=== PATIENT | male | born 1975 | race Hispanic/Latino ===

== ENCOUNTER → 2022-03-29 | Outpatient (CLI) | payer MEDICARE | END | disposition home or self-care (01) | LOC: RAH 13:46 | PROVIDERS: ATTEND Internal Medicine Cardiovascular Disease | DX: I31.3 Pericardial effusion (noninflammatory) (principal); R91.8 Other nonspecific abnormal finding of lung field | CPT/HCPCS: 71250 ==

== ENCOUNTER 2024-08-07 11:38 | Observation (INO) | payer MEDICARE ==
[2024-08-07] VITALS (19 sets, daily range): BP systolic 94–143; BP diastolic 56–91; PULSE 90–125; RESP 14–17; TEMP 97.2–97.9; O2SAT 98
[~2024-08-07] VITALS: Ht 172.7 cm; Wt 64.4 kg
--- NOTE | 2024-08-07 12:08 | ERN ---
General Chief Complaint: Urinary Retention Stated Complaint: DIRECT ADMIT Time Seen by MD: 11:57 Source: patient History of Present Illness Initial Comments Patient is a 49-year-old male coming in to be evaluated for hematuria. Patient has extensive history of Obrien in place. Per Dr. Mccall who is patient's urologist patient is to be admitted for ongoing management. Allergies: Coded Allergies: No Known Allergies (Unverified Allergy, Unknown, 08/07/24) Past Medical History Past Medical History: UTI, Other Medical History Other: DOWN SYNDROME, THYROID Past Surgical History: Other Surgical History Other: LUNG ROS Dictation CONSTITUTIONAL: No chills, no fever, no weakness, no diaphoresis, no malaise. HEAD/FACE: No signs of trauma. EENT: No eye pain, no blurred vision, no tearing, no double vision, no ear pain, no ear discharge, no nose pain, no nasal congestion, no throat pain, no throat swelling, no mouth pain. RESPIRATORY: No cough, no orthopnea, no SOB, no stridor, no wheezing. CARDIOVASCULAR: No chest pain, no edema, no palpitations, no syncope. GASTROINTESTINAL/ABDOMINAL: No abdominal pain, no constipation, no diarrhea, no nausea, no vomiting. GENITOURINARY: No abnormal discharge, no dysuria, no frequent urination, no hematuria. No complaints of pain in the genitals. MUSCULOSKELETAL: No back pain, no gout, no joint pain, no joint swelling, no muscle pain, no muscle stiffness, no neck pain. INTEGUMENTARY: No change in color, no change in hair/nails, no dryness, no lesion, no lumps, no rash. NEUROLOGICAL/PSYCH: No anxiety, not depressed, no emotional problem, no headache, no numbness, no pre-existing deficit, no history of seizures, no tremors, no weakness. HEMATOLOGIC/LYMPHATIC: Not anemic, no history of blood clots, no apparent bleeding, no bruising, glands not swollen. All Systems Negative, Except as Noted. Physical Exam Physical Exam Dictation VITAL SIGNS: Reviewed. GENERAL APPEARANCE: Alert, oriented x3, no acute distress, obese. HEAD AND FACE: Non-traumatic. EYES: PERRL, pink conjunctivas, eyelid no trauma, anterior chamber clear. EARS: Pinnas intact and no signs of trauma or erythema. Ear canals clear and no discharge. TMs no erythema. NOSE: No discharge, no bleeding. OROPHARYNX: Mouth normal, teeth no caries, tongue pink. Pharynx clear, no erythema. Tonsils no exudates, no abscesses noted. Mucous membrane moist. NECK: Supple, non-tender, no thyromegaly, no masses, no JVD, no bruits. BREAST: Deferred. CHEST: No tenderness, no crepitus, no paradoxical movement, no retractions. LUNGS: Clear, well-ventilated, symmetric, no rales, no wheezing, no rhonchi, no stridor, good breath sounds bilaterally. HEART: Regular rate, regular rhythm, no murmur, no gallops. VASCULAR: No peripheral edema. ABDOMEN: Soft, positive bowel sounds, nondistended, no guarding, nontender, no rebound, no masses no hepatomegaly, no splenomegaly, no Whalen's sign, no hernias. RECTAL: Deferred. GENITAL: Deferred. NEUROLOGICAL: Normal speech, gross motor function intact, gross sensory function intact. MUSCULOSKELETAL: Neck nontender, full range of motion, back nontender, full range of motion. EXTREMITIES: Nontender, full range of motion. SKIN: Color pink, dry, no turgor, no rash, no lacerations, no abrasions, no contusions. LYMPHATICS: Deferred. Results Laboratory and Microbiology Labs Reviewed?: Yes MDM MDM: Differential diagnosis: Hematuria, chronic indwelling Obrien, Rationale: Tests considered and ordered secondary to shared decision making include: labs, ECG and radiology Previous outside records reviewed: Old ER visits. Risk of complication and/or morbidity or mortality of patient management: None Medications-Per medication reconciliation Need for hospitalization: Patient does meet criteria for hospitalization. Need for emergency major/minor surgery: No There are no social concerns with this patient. Prescription drug management Prescriptions will include symptomatic care Patient's prior external medical records from other ER visits were reviewed by me as indicated. Prior testing and results from previous visits were reviewed. Prior tests were taken into account with medical decision making and resource ut ilization, independent historian/historians were used to obtain complete medical history. I independently interpreted the test that were performed, results were reviewed by me and considered findings on radiology if ordered. Medical management and examination interpretation discussions were had by me with other qualified healthcare professionals as indicated for the patient's car e. Patient will be admitted under the care of [facility] for ongoing management. Dr. Mccall urologist is on the case as well he will take patient to the OR in the a.m., NPO as of right now. ED Course Orders Procedure Category Date Status Time Cbc With Differential LAB 08/07/24 Logged 11:57 Basic Metabolic Panel LAB 08/07/24 Logged 11:57 Vital Signs(Adult CPOE 08/07/24 Transmitted Hospitalist) 12:30 I&O Q Shift CPOE 08/07/24 Transmitted 12:30 Famotidine 20mg Tab PHA 08/07/24 Logged (Pepcid 20mg Tab) 21:00 Diphenhydramine Hcl PHA 08/07/24 In Process (Benadryl Cap) 12:30 Diphenhydramine Hcl PHA 08/07/24 In Process (Benadryl Inj) 12:30 Acetaminophen 325 Tab PHA 08/07/24 In Process (Tylenol 325mg Tab 12:30 Acetaminophen 325 Tab PHA 08/07/24 In Process (Tylenol 325mg Tab 12:30 Ondansetron 4mg Inj PHA 08/07/24 In Process (Zofran 4mg Inj) 12:30 Mag/Alum/Simeth 30ml PHA 08/07/24 In Process (Maalox Plus 30ml) 12:30 Lactulose 20 Gm/30 Ml PHA 08/07/24 In Process Udcup (Constulose 12:30 Nitroglycerin 0.4mg PHA 08/07/24 In Process Sl Tab (Nitrostat) 12:30 Guaifenesin-Dm PHA 08/07/24 Logged 200/20mg 10ml 12:30 Guaifenesin Sug-Evans PHA 08/07/24 Logged 100 Mg/5ml (Robituss 12:30 Loperamide Hcl 2 Mg PHA 08/07/24 Logged Cap (Imodium) 12:30 Docusate Sodium 100 PHA 08/07/24 Logged Mg Cap (Colace 100mg 12:30 Polyethylene Glycol PHA 08/07/24 Logged 3350 (Miralax 3350 1 12:30 Lidocaine Hcl 2% PHA 08/07/24 Logged Viscous (Lidocaine Hcl 12:30 Natural Tears 15ml PHA 08/07/24 Logged (Artificial Tears) 12:30 Benzocaine/Menth/Cetylpyrd PHA 08/07/24 Logged Cl (Cepacol S 12:30 Admit Orders ADM 08/07/24 Transmitted 12:30 Activity: Ad Belle CPOE 08/07/24 Transmitted 12:30 Nothing By Mouth DIET 08/07/24 Transmitted Lunch Pt And Ptt LAB 08/07/24 Logged 12:30 Initiate HELDER 08/07/24 In Process Hyperglycemia Protoco 12:30 Insulin Lispro 100 PHA 08/07/24 Logged Unit/Ml 3ml (Humalog 16:30 Current Medications Medications (Trade) Dose Ordered Sig/Lesa Route PRN Reason Start Time Stop Time Status Last Admin Dose Admin Acetaminophen (TYLenol 325MG TAB) 650 mg Q4H PRN PO MILD PAIN (1-3) 08/07/24 12:30 09/06/24 12:29 Acetaminophen (TYLenol 325MG TAB) 650 mg Q6H PRN PO TEMPERATURE GREATER THAN 101.5 08/07/24 12:30 09/06/24 12:29 Al Hydroxide/Mg Hydroxide (MAALox PLUS 30ML) 30 ml Q6H PRN PO INDIGESTION 08/07/24 12:30 09/06/24 12:29 Artificial Tears (Artificial Tears) 1 drop Q2H PRN OP DRY EYES 08/07/24 12:30 09/06/24 12:29 UNV Benzocaine (Cepacol Sore Throat Lozenge) 1 each Q2H PRN MM SORE THROAT 08/07/24 12:30 09/06/24 12:29 UNV Diphenhydramine HCl (BENAdryl CAP) 25 mg Q4H PRN PO MILD ITCHING/RASH 08/07/24 12:30 09/06/24 12:29 Diphenhydramine HCl (BENAdryl INJ) 25 mg Q6H PRN IV SEVERE ITCHING/RASH 08/07/24 12:30 09/06/24 12:29 Docusate Sodium (COLace 100MG CAP) 100 mg BID PRN PO CONSTIPATION 08/07/24 12:30 09/06/24 12:29 UNV Famotidine (Pepcid 20mg Tab) 20 mg BID PO 08/07/24 21:00 09/06/24 20:59 UNV Guaifenesin (RobiTUSSin SUGAR-FREE 100 MG/ 5 ML UDCUP) 200 mg Q4H PRN PO COUGH 08/07/24 12:30 09/06/24 12:29 UNV Guaifenesin/ Dextromethorphan (RobiTUSSin DM 200/20MG 10ML) 10 ml Q4H PRN PO COUGH 08/07/24 12:30 09/06/24 12:29 UNV Insulin Human Lispro (HumaLOG LISpro 100 UNIT/ML 3ML) INSULIN SLIDING SCAL... ACHS SQ 08/07/24 16:30 09/06/24 16:29 UNV Lactulose (Constulose 20gm/ 30ml Udcup) 20 gm BID PRN PO CONSTIPATION 08/07/24 12:30 09/06/24 12:29 Lidocaine HCl/Al Hydroxide/Mg Hydroxide/ Dicyclomine HCl 20ML OR AD MAALOX P... Q6H PRN PO HEARTBURN 08/07/24 12:30 09/06/24 12:29 UNV Loperamide HCl (Imodium) 2 mg Q6H PRN PO AFTER EACH LOOSE STOOL 08/07/24 12:30 09/06/24 12:29 UNV Nitroglycerin (Nitrostat) 0.4 mg PROTOCOL PRN SL CHEST PAIN 08/07/24 12:30 09/06/24 12:29 Ondansetron HCl (zoFRAN 4MG INJ) 4 mg Q6H PRN IV NAUSEA/VOMITING 08/07/24 12:30 09/06/24 12:29 Polyethylene Glycol (MIRalax 3350 17 GM POWD.PACK) 17 gm DAILY PRN PO CONSTIPATION 08/07/24 12:30 09/06/24 12:29 UNV Vital Signs Date Time Temp Pulse Resp B/P (MAP) Pulse Ox O2 Delivery O2 Flow Rate FiO2 08/07/24 11:45 97.9 50 16 104/72 100 Room Air 0 DX & DISP Disposition: Inpatient Departure Impression: Primary Impression: Chronic indwelling Obrien catheter Additional Impression: Hematuria Condition: Stable Referrals: JOSIANE ESPARZA MD (PCP) SOFYA GILLIS MD Aug 07, 2024 12:08
[2024-08-07] MEDS ORDERED: acetaMINOPHEN 325 MG TAB PO PRN ×2 (12:30)
[2024-08-07] MEDS ORDERED: guaiFENesin-DM 200/20MG 10ML PO PRN (12:30)
[2024-08-07] MEDS ORDERED: ondanSETRON 4MG INJ IV PRN (12:30)
[2024-08-07] MEDS ORDERED: polyETHYLene GLYCol 3350 17 GM POWD.PACK PO PRN (12:30)
[2024-08-07] MEDS ORDERED: LIDOCAINE HCL 2% VISCOUS 30 ML, MAG/ALUM/SIMETH 30ML 30 ML, DICYCLOMINE HCL 20 MG PO PRN (12:30)
[2024-08-07] MEDS ORDERED: LACTULOSE 20 GM/30 ML UDCUP PO PRN (12:30)
[2024-08-07] MEDS ORDERED: BENZOCAINE/MENTH/CETYLPYRD CL 1 EACH LOZENGE MM PRN (12:30)
[2024-08-07] MEDS ORDERED: DiphenhydrAMINE HCL 25 MG CAPSULE PO PRN (12:30)
[2024-08-07] MEDS ORDERED: LOPERAMIDE HCL 2 MG CAP PO PRN (12:30)
[2024-08-07] MEDS ORDERED: DiphenhydrAMINE HCL 50 MG/ML VIAL IV PRN (12:30)
[2024-08-07] MEDS ORDERED: guaiFENesin SUGAR-FREE 100 MG/5 ML UDCUP PO PRN (12:30)
[2024-08-07] MEDS ORDERED: MAG/ALUM/SIMETH 30 ML UDCUP PO PRN (12:30)
[2024-08-07] MEDS ORDERED: ARTIFICAL TEARS SOL 15 ML OP PRN (12:30)
[2024-08-07] MEDS ORDERED: doCUSate SODIUM 100 MG CAP PO PRN (12:30)
[2024-08-07] MEDS ORDERED: NITROGLYCERIN 0.4 MG SL TAB SL PRN (12:30)
[2024-08-07 12:44] LABS: BASOPHILS # (AUTO) 0.09 K/uL (0.00-0.20); BASOPHILS % (AUTO) 3.1 % (0.0-5.0); EOSINOPHILS # (AUTO) 0.09 K/uL (0.00-0.70); EOSINOPHILS % (AUTO) 3.1 % (0.0-8.0); HEMATOCRIT 38.9 % (42-54); IMMATURE GRANULOCYTE ABSOLUTE 0.01 K/uL (0-1); LYMPHOCYTES % (AUTO) 33.8 % (21.0-51.0); MEAN CORPUSCULAR HGB CONC 32.9 g/dL (32.0-36.0); MEAN CORPUSCULAR VOLUME 94.2 fL (79-99); MONOCYTES # (AUTO) 0.3 K/uL (0.1-1.0); MONOCYTES % (AUTO) 10.6 % (3.0-13.0); NEUTROPHILS # (AUTO) 1.4 K/uL (1.8-7.7); NEUTROPHILS % (AUTO) 49.1 % (40.0-77.0); PLATELET COUNT (AUTO) 183 K/uL (130-400); RED BLOOD CELL COUNT(AUTO) 4.13 MIL/uL (4.50-6.20); RED CELL DISTRIBUTION WIDTH 12.9 % (11.0-15.5); WHITE BLOOD COUNT (AUTO) 2.9 K/uL (4.8-10.8)
[2024-08-07 12:52] LABS: CREATININE 1.4 mg/dL (0.5-1.3); POTASSIUM 4.6 mmol/L (3.5-5.1)
[2024-08-07 13:00] LABS: INR 1.06 (0.85-1.15); PROTHROMBIN TIME 11.4 SEC (9.6-11.6)
[2024-08-07 13:01] LABS: PARTIAL THROMBOPLASTIN TIME 27.8 SEC (26.3-35.5)
[2024-08-07] MEDS ORDERED: cefTRIAXone 1G VIAL ONE (14:16)
[2024-08-07 14:22] LABS: BAND NEUTROPHILS % (MANUAL) 9 % (0-2); BASOPHILS % (MANUAL) 2 % (0-2); EOSINOPHILS % (MANUAL) 1 % (1-6); LYMPHOCYTES % (MANUAL) 40 % (22-44); MONOCYTES % (MANUAL) 7 % (2-9); SEGMENTED NEUTROPHILS % 41 % (40-70); TOTAL CELLS COUNTED 100
[2024-08-07 14:23] LABS: MAN.DIFF COMMENT-IMPRESSION MANUAL DIFFERENTIAL; PLATELET MORPHOLOGY COMMENT ADEQUATE; WBC MORPHOLOGY CONSISTENT
[2024-08-07] MEDS: cefTRIAXone 1G VIAL IVPB ONE (14:34)
[2024-08-07] MEDS: LACTATED RINGERS 1000ML 1,000 ML IV ONE (14:35)
[2024-08-07] MEDS ORDERED: MIDAZOLAM HCL 1 MG/ML 2ML VIAL ONE (14:56)
[2024-08-07] MEDS ORDERED: rocuRONium bROMide 10MG/1ML 5ML VL ONE (15:01)
[2024-08-07] MEDS ORDERED: SUCCINYLCHOLINE CHLORIDE 20 MG/ML 10 ML VIAL ONE (15:01)
[2024-08-07] MEDS ORDERED: proPOFol 10 MG/ML 20ML VIAL IV ONE (15:02)
[2024-08-07] MEDS ORDERED: FENTanyl CITRate PF 50 MCG/1 ML 2ML VIAL ONE (15:03)
--- NOTE | 2024-08-07 15:09 | HP ---
[facility] HISTORY & PHYSICAL Date Patient Seen: Aug 07, 2024 Time of Visit: 14:57 Supervising Physician: [Dr. Field] Primary Care Physician: [ ] Outpatient Specialists: [ ] Inpatient Consults: [Dr. Mccall] PROBLEM LIST: Obstructive uropathy Acute hematuria Chronic indwelling snider catheter, non-functional, pending urology Hypothyroidism Down syndrome Plan: Pending urology for snider catheter exchange Monitor Hgb and bleeding Order Renal U/S Resume home meds when able HPI: [This is a 49-year-old down syndrome male with a history of chronic Snider catheter who presents to the ED as a direct admit from Dr. Mccall for replacement of Snider catheter. At the time of my evaluation patient did not have a Snider catheter in place, and there was a small amount of dried blood noted to his underwear. No active bleeding. His labs on admission revealed WBC of 2, hemoglobin of 12, platelets of 183. BMP was remarkable for mildly elevated creatinine of 1.4, no electrolyte derangement. His INR on admission was 1.06. Unable to obtain history taken from patient, HPI obtained from caregiver at bedside. She states he has had a Snider catheter placed for about a year after it was determined that patient kept retaining urine. It was unsure if this was due to neurogenic bladder vs other causes. States the Snider catheter had kept coming out of place, was evaluated by Dr. Mccall outpatient and recommended for inpatient evaluation and Snider catheter change. Per ED doc, Dr. Mccall is aware and would like to keep patient NPO pending Snider catheter placement.] PAST MEDICAL HX: see above PAST SURGICAL HX: noncontributory SOCIAL HISTORY: No tobacco, ETOH, or illicit drug use Coded Allergies: No Known Allergies (Unverified Allergy, Unknown, 08/07/24) REVIEW OF SYSTEMS: 12 point ROS reviewed with patient. Pertinent positives mentioned above. Otherwise negative. PHYSICAL EXAM: GENERAL: alert, weak, awake oriented x 3, difficult assessment in downs syndrome patient HEENT: EOMI, Sclera non icteric, moist mucosa NECK: Supple, no JVD, trachea midline LUNGS: Clear breath sounds bilaterally. No wheezes HEART: Regular rate and rhythm. Normal S1 and S2, without murmurs ABD: Abdomen soft, nontender. Bowel sounds present EXT: No clubbing cyanosis or edema, R-drop foot with modified foot/leg brace NEURO: Alert and oriented to person, follows commands Vital Signs (last 8hr) Date Time Temp Pulse Resp B/P (MAP) Pulse Ox O2 Delivery O2 Flow Rate FiO2 08/07/24 14:50 97.9 97 16 130/56 96 Room Air 21 08/07/24 13:08 98.1 56 18 91/57 98 Room Air* 0 21 08/07/24 11:45 97.9 50 16 104/72 100 Room Air 0 LABS: Hematology Labs: Test 08/07/24 12:35 Range/Units White Blood Count 2.9 L 4.8-10.8 K/uL Red Blood Count 4.13 L 4.50-6.20 MIL/uL Hemoglobin 12.8 L 14.0-18.0 g/dL Hematocrit 38.9 L 42-54 % Mean Corpuscular Volume 94.2 79-99 fL Mean Corpuscular Hemoglobin 31.0 27.0-33.0 pg Mean Corpuscular Hemoglobin Concent 32.9 32.0-36.0 g/dL Red Cell Distribution Width 12.9 11.0-15.5 % Platelet Count 183 130-400 K/uL Mean Platelet Volume 10.3 7.5-10.5 fL Immature Granulocyte % (Auto) 0.3 0-1 % Neutrophils (%) (Auto) 49.1 40.0-77.0 % Lymphocytes (%) (Auto) 33.8 21.0-51.0 % Monocytes (%) (Auto) 10.6 3.0-13.0 % Eosinophils (%) (Auto) 3.1 0.0-8.0 % Basophils (%) (Auto) 3.1 0.0-5.0 % Neutrophils # (Auto) 1.4 L 1.8-7.7 K/uL Lymphocytes # (Auto) 1.0 1.0-4.8 K/uL Monocytes # (Auto) 0.3 0.1-1.0 K/uL Eosinophils # (Auto) 0.09 0.00-0.70 K/uL Basophils # (Auto) 0.09 0.00-0.20 K/uL Absolute Immature Granulocyte (auto 0.01 0-1 K/uL Segmented Neutrophils % 41 40-70 % Band Neutrophils % 9 H 0-2 % Lymphocytes % (Manual) 40 22-44 % Monocytes % (Manual) 7 2-9 % Eosinophils % (Manual) 1 1-6 % Basophils % (Manual) 2 0-2 % Nucleated Red Blood Cells 0.0 0.0-0.19 % Differential Comment MANUAL DIFFERENTIAL White Cell Morphology Comment CONSISTENT Platelet Morphology Comment ADEQUATE Red Blood Cell Morphology See comments Chemistry Labs: Test 08/07/24 12:35 Range/Units Sodium Level 142 136-145 mmol/L Potassium Level 4.6 3.5-5.1 mmol/L Chloride Level 108 101-111 mmol/L Carbon Dioxide Level 29 21-32 mmol/L Blood Urea Nitrogen 26 H 7-18 mg/dL Creatinine 1.4 H 0.5-1.3 mg/dL Glomerular Filtration Rate Calc 61 >90 mL/min Random Glucose 92 70-105 mg/dL Total Calcium 8.9 8.5-10.1 mg/dL Coagulation Labs: Test 08/07/24 12:35 Range/Units Prothrombin Time 11.4 9.6-11.6 SEC Prothromb Time International Ratio 1.06 0.85-1.15 Activated Partial Thromboplast Time 27.8 26.3-35.5 SEC DIAGNOSTICS / RADIOLOGY RESULTS: [pending renal U/S] PLAN NEURO: Minimize central acting medications as possible. Maintain fall precautions, adequate lighting during the day PULMONARY: Supplemental 02 as needed. Maintain aspiration precautions at all times CARDIOVASCULAR: Follow hemodynamics. Vital signs per facility protocol GI & NUTRITION: Continue with nutritional support. Continue stool softeners and laxatives as needed. KIDNEYS & ELECTROLYTES: Strict monitoring of intake, output and overall fluid balance. Avoid nephrotoxic medications to the extent possible. Medications to be dosed according to renal function. Monitor electrolytes and replace as needed ENDOCRINE: Maintain blood glucose between 100-180 at all times. Hypoglycemia protocol in place INFECTIOUS DISEASE: Trend temperature, WBC and procalcitonin level Follow cultures, deescalate antibiotics as soon as possible. Panculture if new onset fever ONCOLOGY/HEMATOLOGY/COAGULATION: Monitor for s/s of bleeding Monitor hemoglobin, coagulation studies as needed SKIN: Pressure ulcer prevention per facility protocol Specialty mattress ORTHO/REHAB: Continue PT/OT Prophylaxis: Continue GI and DVT prophylaxis Code Status: Full Resuscitation Disposition: TBD Other: Total patient care time exceeds 35 minutes excluding all procedures. ROLANDO CHANLE Aug 07, 2024 15:09
[2024-08-07] MEDS ORDERED: ePHEDrine SULFate 50 MG/ML AMPULE ONE (15:18)
[2024-08-07] MEDS ORDERED: INSULIN LISpro 100 UNIT/ML 3ML SQ SCH (16:30)
--- NOTE | 2024-08-07 17:20 | NUR ---
MARK GAVE TEACHING/INSTRUCTION TO FAMILY ON HOW TO FLUSH FLORES CATHETER. FLUSHED WITH 60CC NS AND REPLACED FLORES BAG WITH LEG BAG REQUESTED BY FAMILY MEMBERS. PROVIDED FAMILY WITH PISTON SYRINGE AND NS TO FLUSH FLORES AT HOME.
[2024-08-07] MEDS ORDERED: BACITRACIN 1 EACH PACKET TP ONE (17:37)
--- NOTE | 2024-08-07 17:50 | NUR ---
PATIENT DISCHARGED FROM FACILITY VIA WHEELCHAIR BY NURSE AND ASSISTED INTO PRIVATE VEHICLE DRIVEN BY FAMILY.
[2024-08-07] MEDS ORDERED: FAMOTIDINE 20MG TAB PO SCH (21:00)
--- NOTE | 2024-08-08 00:12 | OP ---
DATE OF PROCEDURE: 08/07/2024 UROLOGIC OPERATIVE REPORT PRIMARY CARE DOCTOR: River Darby MD PREOPERATIVE DIAGNOSES: Chronic urinary retention, urethral bleeding, rule out urethral false passage. POSTOPERATIVE DIAGNOSES: Urethral bleeding, urinary retention. OPERATION PERFORMED: Cystoscopy with clot evacuation. ANESTHESIA: General. DESCRIPTION OF PROCEDURE: The patient is a 49-year-old male with a history of down syndrome, who has a history of chronic urinary retention and left hydronephrosis with left renal atrophy. The patient has been on chronic indwelling Obrien catheters for over 2 years. The patient had a Obrien catheter placement attempt this morning resulting in bleeding. I was unable to place a coude Obrien catheter in the office. I recommended presentation to [facility] for cystoscopy with clot evacuation and other procedures as clinically indicated. The risks were discussed with the family members to include bleeding, infection, injury to the urethra, prostate or bladder and the need for other procedures as clinically indicated to include possible suprapubic tube placement. The patient's mother reports understanding and agrees to proceed. The patient's family reports understanding and agrees to proceed. The patient was given preoperative Rocephin. The patient was taken back to the operating room where general anesthesia was given. The patient was prepped and draped in a lithotomy position. A 22-Portuguese cystoscope was placed into the urethra. There was mild superficial trauma near the distal bulbar urethra but no obvious false passage. I was able to direct the scope into the bladder. Clot evacuation was performed using Ellik evacuators with 2-3 small clots obtained. Inspection of the bladder revealed chronic Obrien catheter changes but no masses or evidence of bladder urothelial lesions. A 0.38 guidewire was placed through the cystoscope. An 18-Portuguese Obrien catheter was placed over this wire into the bladder. I was able to flush the bladder adequately with very mild hematuria without clots. The patient was subsequently extubated and taken to the recovery room in stable condition. The patient may be discharged later today. The family is to be taught flushing of the Obrien catheter to help if any poor drainage of the Obrien catheter is noted later. The patient is to follow up in my office in approximately 1 week. TID: [id number] RECEIPT: [id number]
== END 2024-08-07 17:50 | disposition home or self-care (01) ==
LOC: EDH 11:38 → EDHIP 12:30 → INTOOBSV 12:30
PROVIDERS: ADMIT Internal Medicine Pulmonary Disease; ATTEND Internal Medicine Pulmonary Disease
DX: T83.511A Infection and inflammatory reaction due to indwelling urethral catheter, initial encounter (principal); N13.9 Obstructive and reflux uropathy, unspecified; N36.8 Other specified disorders of urethra; R31.9 Hematuria, unspecified; R79.89 Other specified abnormal findings of blood chemistry; N39.0 Urinary tract infection, site not specified; N13.30 Unspecified hydronephrosis; E03.9 Hypothyroidism, unspecified; Q90.9 Down syndrome, unspecified; Y84.6 Urinary catheterization as the cause of abnormal reaction of the patient, or of later complication, without mention of misadventure at the time of the procedure; Z79.899 Other long term (current) drug therapy; Z98.890 Other specified postprocedural states
CPT/HCPCS: 96374; 52001; 99284; 80048; 85025; 85610; 85730; 82948; 36415; G0378 ×6; J7120 ×2; A4354; C1769 ×3; J3010; J0330; J3490 ×2; J0696; J2250; J2704; A4358; 99285